=== PATIENT | female | born 1960 | race Caucasian/White ===

== ENCOUNTER → 2020-12-15 | Outpatient (CLI) | payer BC, OTHER ==
[~2020-12-15] MED LIST: ACTIVE-Q200 MG PO; CBD PO; CLONIDINE HCL0.3 M3 PO; CREON DR 36,001 EACH PO; CRESTOR5 MG PO; EPA-DHA 720 SO1 EACH PO; FIASP 100100 UNIT/2; HIGH POTENCY PO; IRON325 PO; K2 PO; L-THEANINE200 MG PO; LEVOTHYROXINE75 MCG PO; LIPO-FLAVONOID1 EACH PO; LISINOPRIL5 MG PO; NORCO 10-325 T1 EACH PO; NORCO5 PO; NORVASC5 M1 PO; PENTASA500 MG PO; PHOSPHATIDYLCHOL1 GM PO; PQQ PO; PREORBOTIC CAP1 EACH PO; PROBIOTIC1 EAC7 PO; RESTORIL7.5 M1 PO; VITAMIN C1000 MG PO; VITAMIN D325 MC2 PO; VITAMIN D325 MC5 PO; [UNRECOGNIZED DRUG - OTHER] PO
[2020-12-15 11:40] LABS: URINE BILIRUBIN NEGATIVE (Negative); URINE BLOOD NEGATIVE (Negative); URINE CLARITY CLEAR; URINE COLOR YELLOW; URINE GLUCOSE-RANDOM* NEGATIVE (Negative); URINE KETONES NEGATIVE (Negative); URINE LEUKOCYTES-REFLEX NEGATIVE (Negative); URINE NITRITE-REFLEX NEGATIVE (Negative); URINE PROTEIN (DIPSTICK) 1+ (Negative); URINE SPECIFIC GRAVITY <= 1.005 (1.005-1.035); URINE UROBILINOGEN 0.2 E.U./dl (0.2-1.0)
[2020-12-15 11:42] LABS: HEMATOCRIT 37.5 % (37.0-47.0); HEMOGLOBIN 12.4 gm/dL (12.0-15.0); MCH 31.7 pg (26.0-34.0); MCHC 33.2 g/dL (28.0-37.0); MCV 95.3 fL (80.0-100.0); RBC 3.93 mil/uL (4.20-5.00); RDW 13.5 % (10.5-14.5); WBC 6.4 thou/uL (4.0-11.0)
[2020-12-15 11:52] LABS: SQUAMOUS 0-3 Few /LPF (0-3)
[2020-12-15 11:53] LABS: CASTS None Seen /LPF (None Seen); CRYSTALS None Seen /LPF (None Seen); MUCUS 0-3 Light strn/LPF (None Seen)
[2020-12-15 11:54] LABS: ALBUMIN 3.4 g/dL (3.4-5.0); CALCIUM 9.5 mg/dL (8.5-10.1); INR 0.94; POTASSIUM 4.6 mmol/L (3.5-5.1); PROTIME 10.3 Seconds (10.5-12.1); TOTAL BILIRUBIN 0.3 mg/dL (0.2-1.0); TOTAL PROTEIN 6.2 g/dL (6.4-8.2)
[2020-12-15 11:56] LABS: BACTERIA-REFLEX 1-9 Few /HPF (None Seen); URINE RBC 1-2 Rare /HPF (NONE SEEN); URINE WBC-REFLEX None Seen /HPF (0-5)
--- NOTE | 2020-12-16 09:30 | EKG ---
[place] [address] [facility] [place] [address] ELECTROCARDIOGRAM REPORT Name: JOAQUIN KEATING [id number] Admission: 12/15/20 Attend Phys: Floyd Figueroa MD Discharge: Date of : 60 Report #: [id number] [facility] Test Date: 2020-12-15 Test Time: 11:33:15 Pat Name: JOAQUIN KEATING Department: Room: Gender: F Group Underwriter: CANDICE JACOB : 1960 Requested By: Floyd Figueroa Order Number: [id number] MD: Roney Sevilla Measurements Intervals [place] Rate: 60 P: -6 [place]: 173 QRS: 76 QRSD: 91 T: 38 QT: 405 QTc: 405 Interpretive Statements Sinus rhythm Poor R wave progression No previous ECG available for comparison Electronically Signed On 12-16-2020 9:29:58 CDT by Roney Sevilla [email or web address] <ELECTRONICALLY SIGNED> By: Roney Sevilla MD, [facility] 12/16/20 0929 1133 1133 Roney Sevilla MD, FACC /EPI
== END ==
LOC: PAC 10:40
PROVIDERS: ATTEND Orthopaedic Surgery
DX: Z01.812 Encounter for preprocedural laboratory examination (principal); Z01.810 Encounter for preprocedural cardiovascular examination; M16.11 Unilateral primary osteoarthritis, right hip; D64.9 Anemia, unspecified; E11.9 Type 2 diabetes mellitus without complications; I10 Essential (primary) hypertension; N28.9 Disorder of kidney and ureter, unspecified; Z88.6 Allergy status to analgesic agent

== ENCOUNTER → 2020-12-28 | Outpatient (CLI) | payer BC, OTHER | LOC: LAB 15:19 | PROVIDERS: ATTEND Student in an Organized Health Care Education/Training Program | DX: Z01.812 Encounter for preprocedural laboratory examination (principal); Z20.822 Contact with and (suspected) exposure to COVID-19 ==

== ENCOUNTER 2020-12-29 06:49 | Day surgery (SDC) | payer BC, OTHER ==
[~2020-12-29] VITALS: Ht 170.2 cm; Wt 60.8 kg
--- NOTE | ~2020-12-29 | O ---
[facility] [place] [address] OPERATIVE REPORT Name: JOAQUIN KEATING Room #: 150-4 [facility] M.R.#: [id number] Admission: 12/29/20 Attend Phys: Floyd Figueroa MD Discharge: Date of : 60 Report #: [id number] THIS REPORT FOR: cc: Physician not on staff Physician not on staff Floyd Figueroa MD ~ DATE OF SERVICE: 12/29/2020 PREOPERATIVE DIAGNOSIS: Right hip osteoarthritis. POSTOPERATIVE DIAGNOSIS: Right hip osteoarthritis. PROCEDURE: Right total hip arthroplasty. SURGEON: Floyd Figueroa MD MATLAB DEVELOPER: Norma Arcos PA-C INDICATION FOR MATLAB DEVELOPER: Throughout the case, extensive retraction and manipulation of the hip was required including dislocation and reduction. This was afforded to me by my asset protection assistant. ANESTHESIA: LMA. IMPLANTS: A [employer] size 14 standard offset Synergy press-fit stem, a size 52 R3 acetabular cup with one acetabular screw, size 36, -3 Oxinium head and an Accord cerclage cable for prophylactic femur fixation. ESTIMATED BLOOD LOSS: 100 mL. COMPLICATIONS: None. SPECIMENS: None. CONDITION UPON LEAVING THE OR: Stable. INDICATIONS FOR PROCEDURE: The patient is a 60-year-old female with right hip osteoarthritis. She had failed conservative measures for this and after discussion with her, she elected for right total hip arthroplasty. DESCRIPTION OF PROCEDURE: Risks, benefits, alternatives, complications were discussed in detail with the patient including but not limited to risk of anesthesia, risk of damage to nerves, arteries, blood vessels, risk for infection, bleeding, DVT, PE, and need for reoperation. Informed consent was obtained from the patient. Right hip was appropriately marked in the preoperative holding area. IV Ancef was given for preoperative antibiotics. [address] [address] OPERATIVE REPORT Name: JOAQUIN KEATING [facility] Room #: 150-4 [facility] M.R.#: [id number] Admission: 12/29/20 Attend Phys: Floyd Figueroa MD Discharge: Date of : 60 Report #: [id number] She was brought to the operating room and placed in the supine position on the operating table. LMA anesthesia was induced without complications. She was then placed in the left lateral decubitus position with the right hip uppermost. Right hip and lower extremity were prepped and draped in normal sterile fashion. Timeout was performed properly identifying the patient and procedure as well as instrumentation and implants with all in the operating room in agreement. Standard posterolateral approach to the hip was made with 10 blade through the skin. Dissection was taken down to the fascia with Bovie cautery and Agosto elevator was used to clean off the fascia. Fresh 10 blade was used to make a fascial incision. This was taken proximally and distally with curved Germain scissor. Charnley retractor was placed. Trochanteric bursa was taken down with Bovie cautery. The piriformis tendon was identified, tagged and taken down with Bovie cautery. Short external rotators were also taken down with Bovie. Capsulotomy was made and capsule ends were tagged for later repair. The hip was dislocated. There was extensive osteoarthritic change of the femoral head. Femoral neck cut was made 1 cm proximal to the lesser trochanter based on preoperative templating and the femoral head was removed. Deep acetabular retractors were placed. Labrum was removed sharply. Pulvinar was removed with Bovie cautery. Acetabulum was then sequentially reamed up to a size 52, at which point there was excellent bleeding cancellous bone. A size 51 trial cup was placed and found to have a good fit. Final size 52 R3 acetabular cup was placed and seated. One acetabular screw was placed for backup fixation and a polyethylene liner for a 36 head was placed. Attention was turned to the femur. This was reamed and broached up to a size 14, at which point the size 14 broach was stable. This was trialed with a high offset neck and a 36, +0 head. Hip was reduced, taken through range of motion, found to be stable, found to be quite tight anteriorly and it was felt maybe we could go to a standard offset neck. Hip was dislocated. A standard offset neck was placed. Hip was then trialed with a 36, +0 head. Hip was reduced, taken through range of motion, found to be stable, found to be somewhat long on the right compared to left. We dislocated again and trialled a 36, -3 head. Hip was reduced, taken through range of motion, found to be stable, found to have equal leg lengths. Hip was dislocated. Broach was removed. A single Accord cerclage cable was placed around the proximal femur for prophylactic fixation. A final size 14 high offset Synergy stem was placed and seated. This was then trialed with a 36, -3 head. Hip was reduced, taken through range of motion, found to be stable, found to have equal leg lengths. Hip was dislocated one last time and a final size 36, -3 Oxinium head was placed. Hip was reduced, taken through range of motion, found to be stable, found to have equal leg lengths. A periarticular injection consisting of morphine, ropivacaine, epinephrine, Toradol was placed around the hip joint capsule. A gram of vancomycin was placed deep in the joint capsule and piriformis were repaired with 0 FiberWire. Fascia was closed with 0 Vicryl. Skin was closed with 2-0 Vicryl, skin staple and a BOSTON dressing was applied. [facility] [address] [place] [address] OPERATIVE REPORT Name: JOAQUIN KEATING [facility] Room #: 150-4 [facility] M.R.#: [id number] Admission: 12/29/20 Attend Phys: Floyd Figueroa MD Discharge: Date of : 60 Report #: [id number] The patient tolerated this procedure well and went to recovery room under care of Anesthesia postoperatively. By: 0900 1032 Floyd Figueroa MD /nt
[2020-12-29 07:22] VITALS: BP 157/58
[2020-12-29 16:20] VITALS: BP 157/58
--- NOTE | 2020-12-29 16:23 | NUR ---
CM RECEIVED A [facility] STATING PT IS STILL IN THE PACU AND DISCHARGING HOME FROM THEIR BUT WANTING HOME HEALTH. CM REACHED OUT TO PT AND SHE HAS NO PREFERENCE OF COMPANY. REFERRAL SENT TO [facility]. LIASON FROM [facility] NOTIFIED AND PRESENT. SHE STATES THEY CAN ACCEPT PATIENT. CM NOTIFIED PACU AND PATIENT. AWAITING FINAL ORDERS FROM DR. SOLANO. LIASON FROM [facility] WILL CONTINUE TO FOLLOW FOR ORDERS.
[2020-12-29 16:33] VITALS: BP 157/58
--- NOTE | 2020-12-31 11:47 | NUR ---
PATIENT WAS NOT D/C FROM A ROOM, RATHER FROM OR TO HOME WITH JENNY SAVAGE ALL INFO FAXED TO PATRICIA. CONFIRMATION SIXTO TIERNEY
--- NOTE | 2020-12-31 14:00 | NUR ---
[facility] CALLED ABOUT OBTAINING HOME HEALTH DISCHARGE ORDERS. FAXED THE ORDERS BUT HOME HEALTH NOT LISTED UNDER DISCHARGE DISPOSITION. WILL CONSULT [facility] [employer] ARCHITECT ON 01/02/21. CONFIRMED WITH PATRICIA/PIERRE AT [facility] THAT THEY RECEIVED. [facility] P [phone]; FAX [phone]
== END 2020-12-29 17:30 | disposition home or self-care (01) ==
LOC: OR → TBA 06:50 → OR 07:10
PROVIDERS: ATTEND Orthopaedic Surgery
DX: M16.11 Unilateral primary osteoarthritis, right hip (principal); M25.551 Pain in right hip; I12.9 Hypertensive chronic kidney disease with stage 1 through stage 4 chronic kidney disease, or unspecified chronic kidney disease; E11.22 Type 2 diabetes mellitus with diabetic chronic kidney disease; N18.30 Chronic kidney disease, stage 3 unspecified; E78.00 Pure hypercholesterolemia, unspecified; F41.9 Anxiety disorder, unspecified; M85.80 Other specified disorders of bone density and structure, unspecified site; Z98.890 Other specified postprocedural states; Z79.899 Other long term (current) drug therapy; Z96.611 Presence of right artificial shoulder joint; Z87.19 Personal history of other diseases of the digestive system; Z88.8 Allergy status to other drugs, medicaments and biological substances
CPT/HCPCS: 50101; 50382; 50414; 51412; 53000; 53078; 53368; 56524; 56528; 56530; 57095; 57103; 58947; 62110; 62900; 70005